=== PATIENT | male | born 1945 | race Caucasian/White ===

== ENCOUNTER 2017-10-28 05:44 | Observation (INO) | payer MEDICARE, OTHER ==
[2017-10-28] VITALS (10 sets, daily range): BP systolic 117–192; BP diastolic 63–111; PULSE 73–89; RESP 15–22; TEMP 98–98.8; O2SAT 82–100
[~2017-10-28] VITALS: Ht 177.8 cm; Wt 120.0 kg
[~2017-10-28 05:44] MED LIST: ALPR.25 PO; ATOR10 PO; CEFU1TAB43 PO; FURO20 PO; KCL10 PO; METF850 PO; WARF5 PO
--- NOTE | 2017-10-28 06:46 | PD ---
HPI Chief Complaint: Chest Pain Time Seen by Provider: 06:18 Travel History International Travel<30 days: No Contact w/Intl Traveler<30days: No Traveled to known affect area: No History of Present Illness HPI 71-year-old male with history of diabetes, hypertension, hyperlipidemia, bilateral pulmonary embolism diagnosed in 2016 on Coumadin, brought in by ambulance from home for evaluation of chest pain. Patient reports that he woke up this morning at around 3:00 AM and shortly afterwards he began to experience chest pain that was substernal, radiates to his bilateral shoulders and neck as well as back. He is unable to describe the pain. He reports that he became diaphoretic. Upon arrival to the emergency department he reports that his pain is improved. He tells me that he felt as though he may pass out during the episode of pain. The patient is also very concerned because for the last 2 months he has been increasingly weak with generalized weakness. He also reports that he has had little to eat or drink over the last couple of days. He believes he may have had the flu last week. Currently no cough or hemoptysis. No paresthesias or motor deficits. PFSH Past Medical History Hx Anticoagulant Therapy: No Cardiovascular Problems: Yes (HTN) Chemotherapy: No Cerebrovascular Accident: No Diabetes: Yes Hypertension: Yes Respiratory: No Past Surgical History Abdominal Surgery: Yes (HERNIA REPAIR) Social History Alcohol Use: No Tobacco Use: No Substance Use: No Allergies-Medications (Allergen,Severity, Reaction): Coded Allergies: No Known Allergies (Unverified , 05/06/16) Reported Meds & Prescriptions Reported Meds & Active Scripts Active Reported Klor-Con M20 (Potassium Chloride Microencaps) 20 Meq Tab 20 Meq PO DAILY Furosemide 20 Mg Tab 20 Mg PO DAILY Folic Acid 0.4 Mg Tab 1 Mg PO DAILY Warfarin 6 Mg Tab 6 Mg PO DAILY Atorvastatin (Atorvastatin Calcium) 10 Mg Tab 10 Mg PO HS Losartan (Losartan Potassium) 25 Mg Tab 25 Mg PO DAILY Glimepiride 4 Mg Tab 4 Mg PO DAILY Take with breakfast or first main meal Metoprolol Tartrate 100 Mg Tab 100 Mg PO BID Review of Systems Except as stated in HPI: all other systems reviewed are Neg Physical Exam Narrative GENERAL: Well-developed, well-nourished, overweight, awake, alert, comfortable, no apparent distress. SKIN: Focused skin assessment warm/dry. Large/brownish color/fungating mass on anterior scalp/forehead. The patient reports that he has had this for quite some time, and was told that it was a basal cell carcinoma, however he is not receiving any treatment for it. HEAD: Atraumatic. Normocephalic. Skin exam as above. EYES: Pupils equal and round. No scleral icterus. No injection or drainage. ENT: Mucous membranes pink and moist. NECK: Trachea midline. No JVD. CARDIOVASCULAR: Regular rate and rhythm. Distal pulses brisk and equal bilaterally. RESPIRATORY: No accessory muscle use. Clear to auscultation. Breath sounds equal bilaterally. GASTROINTESTINAL: Abdomen soft, non-tender, nondistended. MUSCULOSKELETAL: No obvious deformities. No clubbing. No cyanosis. No edema. NEUROLOGICAL: Awake and alert. No obvious cranial nerve deficits. Motor grossly within normal limits. Normal speech. PSYCHIATRIC: Appropriate mood and affect; insight and judgment normal. Data Data Last Documented VS Vital Signs Date Time Temp Pulse Resp B/P (MAP) Pulse Ox O2 Delivery O2 Flow Rate FiO2 10/28/17 05:59 98.4 85 19 154/75 (101) 100 Orders Orders B-Type Natriuretic Peptide (10/28/17 06:48) Ckmb (Isoenzyme) Profile (10/28/17 06:48) Complete Blood Count With Diff (10/28/17 06:48) Comprehensive Metabolic Panel (10/28/17 06:48) Magnesium (Mg) (10/28/17 06:48) Prothrombin Time / Inr (Pt) (10/28/17 06:48) Act Partial Throm Time (Ptt) (10/28/17 06:48) Troponin I (10/28/17 06:48) Lipase (10/28/17 06:48) Chest, Single Ap (10/28/17 06:48) Ecg Monitoring (10/28/17 06:48) Iv Access Insert/Monitor (10/28/17 06:48) Oximetry (10/28/17 06:48) Aspirin Chew (Aspirin Chew) (10/28/17 07:00) Sodium Chloride 0.9% Flush (Ns Flush) (10/28/17 07:00) Labs Laboratory Tests Test 10/28/17 06:[address] [facility] Medical Decision Making Medical Screen Exam Complete: Yes Emergency Medical Condition: Yes Interpretation(s) EKG: Sinus, rate 79, normal axis, normal intervals, no acute ischemic abnormality. Differential Diagnosis ACS, pneumothorax, pericarditis, PE, pneumonia, musculoskeletal pain, melanoma, basal cell carcinoma Narrative Course At approximately 7:00 AM at the end of my shift the patient was signed out to Dr. Garza to follow-up with labs, imaging studies, and disposition. Syd Husain MD Oct 28, 2017 06:46
[2017-10-28] MEDS ORDERED: ASPIRIN 81 MG CHEW TAB PO ONE (07:00)
[2017-10-28] MEDS ORDERED: SODIUM CHLORIDE 0.9% FLUSH 10 ML FLUSH IVF PRN (07:00)
[2017-10-28] MEDS ORDERED: ATOR10TA15 PO (07:01)
[2017-10-28] MEDS ORDERED: LOSA25TA PO (07:01)
[2017-10-28] MEDS ORDERED: KLOR20TA3 PO (07:01)
[2017-10-28] MEDS ORDERED: FOLI400T PO (07:01)
[2017-10-28] MEDS ORDERED: WARF-60 PO (07:01)
[2017-10-28] MEDS ORDERED: METO100T PO (07:01)
[2017-10-28] MEDS ORDERED: GLIM4TAB PO (07:01)
[2017-10-28] MEDS ORDERED: FURO20TA PO (07:01)
[2017-10-28 07:10] LABS: BASOPHIL # 0.1 TH/MM3 (0-0.2); BASOPHIL % 0.9 % (0.0-2.0); EOSINOPHIL # 0.2 TH/MM3 (0-0.4); EOSINOPHIL % 2.9 % (0.0-4.0); HEMATOCRIT 47.4 % (39.0-51.0); HEMOGLOBIN 16.2 GM/DL (13.0-17.0); LYMPH % 25.1 % (9.0-44.0); LYMPHOCYTE # 1.6 TH/MM3 (1.0-4.8); MEAN CELL VOLUME 90.5 FL (80.0-100.0); MEAN CORPUSCULAR HEMOGLOBIN 30.9 PG (27.0-34.0); MEAN CORPUSCULAR HGB CONC 34.2 % (32.0-36.0); MEAN PLATELET VOLUME 9.7 FL (7.0-11.0); MONO % 8.6 % (0.0-8.0); MONOCYTE # 0.5 TH/MM3 (0-0.9); NEUT % 62.5 % (16.0-70.0); PLATELET COUNT 192 TH/MM3 (150-450); RED BLOOD COUNT 5.24 MIL/MM3 (4.50-5.90); RED CELL DISTRIBUTION WIDTH 13.8 % (11.6-17.2); WHITE BLOOD COUNT 6.3 TH/MM3 (4.0-11.0)
[2017-10-28 07:21] LABS: INTERNATIONAL NORMALIZED RATIO 3.1 RATIO; PROTHROMBIN TIME - PATIENT 31.4 SEC (9.8-11.6)
--- NOTE | 2017-10-28 07:41 | RADRPT ---
EXAM DATE/TIME: 10/28/2017 07:21 [facility] COMPARISON: CHEST SINGLE AP, May 10, 2016, 3:39. INDICATIONS : Chest pain. MEDICAL HISTORY : Hypertension. SURGICAL HISTORY : None. ENCOUNTER: Initial ACUITY: 2 days PAIN SCORE: 5/10 LOCATION: Left upper chest FINDINGS: There is a mild slightly atelectasis versus scarring in both lung bases. Otherwise, the lungs are ricci ar and well-aerated. No definite pleural effusions. The heart size is within normal limits and stable . There is mild prominence of the pulmonary vasculature. The bony structures are grossly intact. Ther e is no evidence of pneumothorax. There is evidence of previous surgery to the lower cervical spine. CONCLUSION: 1. Mild bibasilar atelectasis versus scarring. 2. Mild pulmonary venous congestion. 3. Otherwise, no significant changes compared to the prior exam. Jesus Gusman MD on October 28, 2017 at 7:38 Board Certified Radiologist. This report was verified electronically.
[2017-10-28 07:45] LABS: ALBUMIN 3.5 GM/DL (3.4-5.0); ALKALINE PHOSPHATASE 83 U/L (45-117); ALT (GPT) 34 U/L (12-78); AST (GOT) 39 U/L (15-37); BICARBONATE 27.9 MEQ/L (21.0-32.0); BLOOD UREA NITROGEN 7 MG/DL (7-18); CALCIUM 9.2 MG/DL (8.5-10.1); CHLORIDE 104 MEQ/L (98-107); CREATININE 1.23 MG/DL (0.60-1.30); GLOMERULAR FILTRATION RATE 58 ML/MIN (>89); GLUCOSE,RANDOM 181 MG/DL (74-106); SODIUM (NA) 139 MEQ/L (136-145); TOTAL BILIRUBIN ADULT 0.6 MG/DL (0.2-1.0); TOTAL PROTEIN 7.7 GM/DL (6.4-8.2); TROPONIN I LESS THAN 0.02 NG/ML (0.02-0.05)
--- NOTE | 2017-10-28 08:11 | PD ---
Physical Exam Date Seen by Provider: Oct 28, 2017 Time Seen by Provider: 07:00 Narrative Patient initially seen and evaluated by Dr. Husain, please see Dr. Husain's note for further details, signed out to me at 7 AM awaiting initial workup, planning to admit to chest pain center. Initial EKG did not show significant ST elevations or depressions, no dysrhythmias identified. Laboratory Tests Test 10/28/17 06:45 Monocytes (%) (Auto) 8.6 % (0.0-8.0) Prothrombin Time 31.4 SEC (9.8-11.6) Activated Partial Thromboplast Time 42.8 SEC (24.3-30.1) Random Glucose 181 MG/DL (74-106) Aspartate Amino Transf (AST/SGOT) 39 U/L (15-37) Estimat Glomerular Filtration Rate 58 ML/MIN (>89) Troponin I LESS THAN 0.02 NG/ML Last 24 hours Impressions Chest X-Ray 10/28/17 0648 Signed Impressions: Service Date/Time: Saturday, October 28, 2017 07:21 - CONCLUSION: 1. Mild bibasilar atelectasis versus scarring. 2. Mild pulmonary venous congestion. 3. Otherwise , no significant changes compared to the prior exam. Jesus Gusman MD At this point, plan would be to admit the patient to chest pain center as previously discussed. Data Data Last Documented VS Vital Signs Date Time Temp Pulse Resp B/P (MAP) Pulse Ox O2 Delivery O2 Flow Rate FiO2 10/28/17 07:00 77 22 146/77 (100) 97 Room Air 10/28/17 05:59 98.4 Orders Orders B-Type Natriuretic Peptide (10/28/17 06:48) Ckmb (Isoenzyme) Profile (10/28/17 06:48) Complete Blood Count With Diff (10/28/17 06:48) Comprehensive Metabolic Panel (10/28/17 06:48) Magnesium (Mg) (10/28/17 06:48) Prothrombin Time / Inr (Pt) (10/28/17 06:48) Act Partial Throm Time (Ptt) (10/28/17 06:48) Troponin I (10/28/17 06:48) Lipase (10/28/17 06:48) Chest, Single Ap (10/28/17 06:48) Ecg Monitoring (10/28/17 06:48) Iv Access Insert/Monitor (10/28/17 06:48) Oximetry (10/28/17 06:48) Aspirin Chew (Aspirin Chew) (10/28/17 07:00) Sodium Chloride 0.9% Flush (Ns Flush) (10/28/17 07:00) Electrocardiogram (10/28/17 06:05) Admit Order (Ed Use Only) (10/28/17 08:09) Labs Laboratory Tests Test 10/28/17 06:45 White Blood Count 6.3 TH/MM3 Red Blood Count 5.24 MIL/MM3 Hemoglobin 16.2 GM/DL Hematocrit 47.4 % Mean Corpuscular Volume 90.5 FL Mean Corpuscular Hemoglobin 30.9 PG Mean Corpuscular Hemoglobin Concent 34.2 % Red Cell Distribution Width 13.8 % Platelet Count 192 TH/MM3 Mean Platelet Volume 9.7 FL Neutrophils (%) (Auto) 62.5 % Lymphocytes (%) (Auto) 25.1 % Monocytes (%) (Auto) 8.6 % Eosinophils (%) (Auto) 2.9 % Basophils (%) (Auto) 0.9 % Neutrophils # (Auto) 4.0 TH/MM3 Lymphocytes # (Auto) 1.6 TH/MM3 Monocytes # (Auto) 0.5 TH/MM3 Eosinophils # (Auto) 0.2 TH/MM3 Basophils # (Auto) 0.1 TH/MM3 CBC Comment DIFF FINAL Differential Comment Prothrombin Time 31.4 SEC Prothromb Time International Ratio 3.1 RATIO Activated Partial Thromboplast Time 42.8 SEC Blood Urea Nitrogen 7 MG/DL Creatinine 1.23 MG/DL Random Glucose 181 MG/DL Total Protein 7.7 GM/DL Albumin 3.5 GM/DL Calcium Level 9.2 MG/DL Magnesium Level 2.0 MG/DL Alkaline Phosphatase 83 U/L Aspartate Amino Transf (AST/SGOT) 39 U/L Alanine Aminotransferase (ALT/SGPT) 34 U/L Total Bilirubin 0.6 MG/DL Sodium Level 139 MEQ/L Potassium Level 4.4 MEQ/L Chloride Level 104 MEQ/L Carbon Dioxide Level 27.9 MEQ/L Anion Gap 7 MEQ/L Estimat Glomerular Filtration Rate 58 ML/MIN Total Creatine Kinase 84 U/L Troponin I LESS THAN 0.02 NG/ML B-Type Natriuretic Peptide 9 PG/ML Lipase 276 U/L [facility] Medical Record Reviewed: Yes Supervised Visit with JAVON: No Diagnosis Primary Impression: Chest pain Admitting Information Admitting Physician Requests: Reilly Bragg MD Oct 28, 2017 08:11
--- NOTE | 2017-10-28 08:46 | EKG ---
Date Performed: 10/28/2017 Time Performed: 06:05:54 PTAGE: 71 years EKG: Sinus rhythm NORMAL ECG PREVIOUS TRACING : 05/07/2016 01.09 No significant change from previous tracing noted. DOCTOR: Magan Morgan Interpretating Date/Time 10/28/2017 08:44:03
[2017-10-28] MEDS ORDERED: ACETAMINOPHEN 500 MG CPLT PO PRN (11:00)
[2017-10-28] MEDS ORDERED: ONDANSETRON HCL 4 MG/2 ML VIAL IV PUSH PRN (11:00)
[2017-10-28] MEDS ORDERED: ACETAMINOPHEN/HYDROcodone 325 MG/7.5 MG TAB PO PRN (11:00)
[2017-10-28] MEDS ORDERED: DEXTROSE 50% IN WATER 50 ML VIAL(D50) IV PUSH PRN (11:15)
[2017-10-28] MEDS ORDERED: GLUCAGON 1 MG/ML VIAL OTHER PRN (11:15)
[2017-10-28] MEDS ORDERED: WARF-23 PO (11:22)
--- NOTE | 2017-10-28 11:48 | HHI.HP ---
HPI Primary Care Physician Paulie Zaidi MD Chief Complaint Chest pain History of Present Illness This is a 71-year-old male with history of bilateral pulmonary embolus and a non -STEMI April 2016, hypertension, hyperlipidemia, diabetes, and basal cell carcinoma on the scalp that presents to ED to be evaluated for chest discomfort. Patient states that he has been having intermittent discomfort. Points across lower part of his chest and states that radiates upward into his neck. The discomfort generally was very random over the last month. Found nothing necessary to bring on the discomfort. Nothing to worsen or improve it. He also states that over the last month he has been very fatigued and short of breath. Concerned, states that it was similar to when he had pulmonary emboli. Voices compliance with his medication. In fact states that his warfarin dose was recently changed. His INR went up to 5 and his Coumadin dose was decreased from 6 mg to 5 mg daily after holding it for 2 days. His INR in the ED today is 3.1. He had stopped taking his Lasix and potassium and when he saw his PCP Dr. Zaidi, Dr. Zaidi assumed he had stopped taking her mind and he needed to take the medicine as his feet were very swollen. The patient states that his feet have improved and takes office used to show me. As he does this you can see that all his toenails are extremely long and not been trimmed for quite a long time. States he does not have a medical record technician to follow-up with. He then shows me the lesion on his scalp saying he has a basal cell carcinoma that is continuing to worsen and he has not followed up to have that removed. But now the patient is very concerned over his health and states that he will do whatever is needed. He is concerned, states his son just of a myocardial infarction 3 weeks ago. He has been taking the Lasix and potassium as instructed her last 2 weeks however he has not noticed a change in his weight but his doctor has noticed that his feet are not swollen. His concern was the discomfort this morning that just would not go away and is still present at this time. Review of Systems General: Patient denies fevers, chills, and recent travel. HEENT: Patient denies headache, sore throat, difficulty swallowing. Cardiovascular: Has the chest discomfort as mentioned above. Denies sensation of heart beating rapidly or irregularly. No syncope. Denies diaphoresis. Respiratory: He has been short of breath. He has been short of breath at rest and with exertion. Denies shortness of breath or inspirational chest discomfort. Denies coughing wheezing or hemoptysis. GI: Patient denies nausea, vomiting, diarrhea, abdominal pain, bloody stools. Musculoskeletal: Had edema in his feet but that has improved after restarting Lasix 2 weeks ago. Denies calf pain or edema. Neurovascular: Patient denies numbness, tingling, weakness in extremities. Denies headache. Endocrine: Denies polyuria and polydipsia. Hematologic: Denies easy bruising. Skin: Complains of a basal cell carcinoma on his scalp. Denies rash or itching. Past Family Social History Allergies: Coded Allergies: No Known Allergies (Unverified , 05/06/16) Past Medical History Hypertension, hyperlipidemia, diabetes, bilateral pulmonary embolus April 2016 at same time had elevated troponins but was thought to be related to the pulmonary emboli and no further cardiac workup was obtained at that time. Denies any knowledge of prior coronary disease. Past Surgical History Hernia repair. Reported Medications Reported Meds & Active Scripts Active Warfarin 5 Mg Tab 5 Mg PO DAILY Reported Klor-Con M20 (Potassium Chloride Microencaps) 20 Meq Tab 20 Meq PO DAILY Furosemide 20 Mg Tab 20 Mg PO DAILY Folic Acid 0.4 Mg Tab 1 Mg PO DAILY Atorvastatin (Atorvastatin Calcium) 10 Mg Tab 10 Mg PO HS Losartan (Losartan Potassium) 25 Mg Tab 25 Mg PO DAILY Glimepiride 4 Mg Tab 4 Mg PO DAILY Take with breakfast or first main meal Metoprolol Tartrate 100 Mg Tab 100 Mg PO BID Active Ordered Medications Current Medications Medications (Trade) Dose Ordered Sig/Avi Route Start Time Stop Time Status Last Admin (NS Flush) 2 ml UNSCH PRN IVF 10/28/17 07:00 10/28/17 06:57 (Tylenol) 500 mg Q4H PRN PO 10/28/17 11:00 UNV ([place] 7.5-325 Mg) 1 tab Q4H PRN PO 10/28/17 11:00 UNV (Zofran Inj) 4 mg Q6H PRN IV PUSH 10/28/17 11:00 UNV (NovoLOG SUPPLEMENTAL SCALE) 1 ACHS SLIDING SCALE SQ 10/28/17 12:00 UNV (D50w (Vial) Inj) 50 ml UNSCH PRN IV PUSH 10/28/17 11:15 UNV (Glucagon Inj) 1 mg UNSCH PRN OTHER 10/28/17 11:15 UNV (Folate) 1 mg DAILY PO 10/28/17 11:15 UNV (Lasix) 20 mg DAILY PO 10/28/17 11:15 UNV (Cozaar) 25 mg DAILY PO 10/28/17 11:15 UNV (Lopressor) 100 mg BID PO 10/28/17 11:15 UNV (KCl) 20 meq DAILY PO 10/28/17 11:15 UNV Family History His son 3 weeks ago of a myocardial infarction at age 43. Social History Non-smoker. Denies alcohol or illicit drug use. Physical Exam Vital Signs Vital Signs Date Time Temp Pulse Resp B/P (MAP) Pulse Ox O2 Delivery O2 Flow Rate FiO2 10/28/17 10:20 10/28/17 10:00 76 16 126/65 (85) 99 Room Air 10/28/17 09:00 73 15 133/70 (91) 96 Room Air 10/28/17 08:00 74 16 126/63 (84) 99 Room Air 10/28/17 07:00 77 22 146/77 (100) 97 Room Air 10/28/17 05:59 98.4 85 19 154/75 (101) 100 Physical Exam GENERAL: This is a well-nourished, well-developed patient, in no apparent distress. Patient speaks in clear complete sentences. Patient is pleasant. HEENT: Head is atraumatic and normocephalic. Neck is supple without lymphadenopathy and trachea is midline. No JVD or carotid bruits. CARDIOVASCULAR: Regular rate and rhythm without murmurs, gallops, or rubs. RESPIRATORY: Clear to auscultation. Breath sounds equal bilaterally. No wheezes , rales, or rhonchi. Chest wall is nontender. No use of accessory muscles. GASTROINTESTINAL: Abdomen is nontender, nondistended. Abdomen soft. No obvious pulsatile mass or bruit. No CVA tenderness. Strong femoral pulses bilaterally. Normal bowel sounds in all quadrants. MUSCULOSKELETAL: Patient is moving upper and lower extremities freely. No calf tenderness or edema, no Homans sign. Strong pulses in upper and lower extremities. NEUROLOGICAL: Patient is alert and oriented. Cranial nerves 2-12 are grossly intact. No focal deficits and speech is clear. SKIN: There is a lesion that is scabbed over on his scalp that he states has been there for more than a year that he can remember. It is raised. States it is a basal cell carcinoma. Has not had follow-up to have it excised. No rash and turgor is normal. Laboratory Laboratory Tests Test 10/28/17 06:45 White Blood Count 6.3 Red Blood Count 5.24 Hemoglobin 16.2 Hematocrit 47.4 Mean Corpuscular Volume 90.5 Mean Corpuscular Hemoglobin 30.9 Mean Corpuscular Hemoglobin Concent 34.2 Red Cell Distribution Width 13.8 Platelet Count 192 Mean Platelet Volume 9.7 Neutrophils (%) (Auto) 62.5 Lymphocytes (%) (Auto) 25.1 Monocytes (%) (Auto) 8.6 Eosinophils (%) (Auto) 2.9 Basophils (%) (Auto) 0.9 Neutrophils # (Auto) 4.0 Lymphocytes # (Auto) 1.6 Monocytes # (Auto) 0.5 Eosinophils # (Auto) 0.2 Basophils # (Auto) 0.1 CBC Comment DIFF FINAL Differential Comment Prothrombin Time 31.4 Prothromb Time International Ratio 3.1 Activated Partial Thromboplast Time 42.8 Blood Urea Nitrogen 7 Creatinine 1.23 Random Glucose 181 Total Protein 7.7 Albumin 3.5 Calcium Level 9.2 Magnesium Level 2.0 Alkaline Phosphatase 83 Aspartate Amino Transf (AST/SGOT) 39 Alanine Aminotransferase (ALT/SGPT) 34 Total Bilirubin 0.6 Sodium Level 139 Potassium Level 4.4 Chloride Level 104 Carbon Dioxide Level 27.9 Anion Gap 7 Estimat Glomerular Filtration Rate 58 Total Creatine Kinase 84 Troponin I LESS THAN 0.02 B-Type Natriuretic Peptide 9 Lipase 276 Result Diagram: 10/28/1745 10/28/1745 Imaging Last 48 hours Impressions Chest X-Ray 10/28/17 0648 Signed Impressions: Service Date/Time: Saturday, October 28, 2017 07:21 - CONCLUSION: 1. Mild bibasilar atelectasis versus scarring. 2. Mild pulmonary venous congestion. 3. Otherwise , no significant changes compared to the prior exam. Jesus Gusman MD Course Initial EKG is sinus rhythm without significant ST segment depressions or elevations. Caprini VTE Risk Assessment Caprini VTE Risk Assessment: Mod/High Risk (score >= 2) Caprini Risk Assessment Model Point Value = 1 Point Value = 2 Point Value = 3 Point Value = 5 Age 41-60 Minor surgery BMI > 25 kg/m2 Swollen legs Varicose veins or History of unexplained or recurrent spontaneous Oral contraceptives or hormone replacement Sepsis (< 1 month) Serious lung disease, including pneumonia (< 1 month) Abnormal pulmonary function Acute myocardial infarction Congestive heart failure (< 1 month) History of inflammatory bowel disease Medical patient at bed rest Age 61-74 Arthroscopic surgery Major open surgery (> 45 min) Laparoscopic surgery (> 45 min) Malignancy Confined to bed (> 72 hours) Immobilizing plaster cast Central venous access Age >= 75 History of VTE Family history of VTE Factor V Leiden Prothrombin [id number] Lupus anticoagulant Anticardiolipin antibodies Elevated serum homocysteine Heparin-induced thrombocytopenia Other congenital or acquired thrombophilia Stroke (< 1 month) Elective arthroplasty Hip, pelvis, or leg fracture Acute spinal cord injury (< 1 month) Prophylaxis Regimen Total Risk Factor Score Risk Level Prophylaxis Regimen 0-1 Low Early ambulation 2 Moderate Order ONE of the following: *Sequential Compression Device (SCD) *Heparin 5000 units SQ BID 3-4 Higher Order ONE of the following medications: *Heparin 5000 units SQ TID *Enoxaparin/Lovenox 40 mg SQ daily (WT < 150 kg, CrCl > 30 mL/min) *Enoxaparin/Lovenox 30 mg SQ daily (WT < 150 kg, CrCl > 10-29 mL/min) *Enoxaparin/Lovenox 30 mg SQ BID (WT < 150 kg, CrCl > 30 mL/min) AND/OR *Sequential Compression Device (SCD) 5 or more Highest Order ONE of the following medications: *Heparin 5000 units SQ TID (Preferred with Epidurals) *Enoxaparin/Lovenox 40 mg SQ daily (WT < 150 kg, CrCl > 30 mL/min) *Enoxaparin/Lovenox 30 mg SQ daily (WT < 150 kg, CrCl > 10-29 mL/min) *Enoxaparin/Lovenox 30 mg SQ BID (WT < 150 kg, CrCl > 30 mL/min) AND *Sequential Compression Device (SCD) Assessment and Plan Assessment and Plan * Chest pain: Patient will continue to have serial cardiac enzymes and EKGs for ruling out purposes. He will be seen by Dr. Peterson of cardiology in the chest pain center. He will have a CT pulmonary antrum to rule out pulmonary embolus and if that is unremarkable for PE with an proceed with a Lexiscan. Patient to be discharged home if his Lexiscan is nonischemic. * Questionable if he has some mild heart failure: BNP is normal however chest x- ray showed some mild pulmonary venous congestion. Admits to being noncompliant with his diuretic but restarted it 2 weeks ago at the instructions of his primary care physician and is noticed that the swelling in his feet have gone down. We will resume his medication. * Hypertension: Resume medication. * Hyperlipidemia: Resume medication. * Obesity: Patient counseled importance of diet, excess, weight loss. * Diabetes: Patient will be on sliding scale insulin coverage while in chest pain center. Resume medication at discharge. All diabetic diet. Patient is stable at this time. He is agreeable to this plan. At discharge patient should be following up with his primary care physician and return to ED for interval issues. Charlie Ponce Oct 28, 2017 11:48
[2017-10-28] MEDS ORDERED: IOHEXOL 350 MG/ML 10 ML VIAL (for RAD DIAG) IVCONTRAST ONE (11:59)
[2017-10-28] MEDS ORDERED: LOSARTAN 25 MG TAB PO SCH (12:00)
[2017-10-28] MEDS ORDERED: FOLIC ACID 1 MG TAB PO SCH (12:00)
[2017-10-28] MEDS ORDERED: INSULIN ASPART SUPPLEMENTAL SCALE SQ SCH (12:00)
[2017-10-28] MEDS ORDERED: FUROSEMIDE 20 MG TAB PO SCH (12:00)
[2017-10-28] MEDS ORDERED: POTASSIUM CHLORIDE 20 MEQ CONTROLLED RELEASE TAB PO SCH (12:00)
--- NOTE | 2017-10-28 12:03 | RADRPT ---
EXAM DATE/TIME: 10/28/2017 11:43 [facility] COMPARISON: CT PULMONARY ANGIOGRAM, May 06, 2016, 20:54. INDICATIONS : Back pain for a month, radiates to right side, diaphoretic IV CONTRAST: 75 cc Omnipaque 350 (iohexol) IV RADIATION DOSE: 10.63 CTDIvol (mGy) MEDICAL HISTORY : Cardiovascular disease. Hypertension. Diabetes, PE SURGICAL HISTORY : Hernia ENCOUNTER: Initial ACUITY: 1 month PAIN SCALE: 6/10 LOCATION: Right chest TECHNIQUE: Volumetric scanning of the chest was performed using a pulmonary embolism protocol MIP images were re constructed. Using automated exposure control and adjustment of the mA and/or kV according to patien t size, radiation dose was kept as low as reasonably achievable to obtain optimal diagnostic quality images. DICOM format image data is available electronically for review and comparison. Follow-up recommendations for detected pulmonary nodules are based at a minimum on nodule size and pa tient risk factors according to Fleischner Society Guidelines. FINDINGS: PULMONARY ARTERIES: No filling defects are seen in the pulmonary arteries through the segmental level. LUNGS: There is no consolidation or pneumothorax . No concerning pulmonary nodule is visualized. PLEURAE: There is no pleural thickening or pleural effusion. MEDIASTINUM: There is good visualization of the great vessels of the middle mediastinum. No evidence of mediastin al or hilar adenopathy/mass. CONCLUSION: 1. The study is negative for pulmonary embolism. Lucho Beltran MD on October 28, 2017 at 11:58 Board Certified Radiologist. This report was verified electronically.
[2017-10-28] MEDS ORDERED: METOPROLOL TARTRATE 100 MG TAB PO SCH (12:30)
[2017-10-28 13:36] LABS: TROPONIN I LESS THAN 0.02 NG/ML (0.02-0.05)
--- NOTE | 2017-10-28 14:12 | PD.CARD.PN ---
Subjective Subjective Remarks Rather complex patient with a history of pulmonary emboli, diabetes, hypertension poorly controlled, probable CHF, large fungating basal cell carcinoma of the head, and morbid obesity presents now with complaints of vague atypical chest pain. Patient was discussed with the advanced practitioner medical records were reviewed and the patient was seen and examined by me personally. Assessment and plan are as discussed and recorded. Objective Medications Current Medications Medications (Trade) Dose Ordered Sig/Avi Route Start Time Stop Time Status Last Admin (NS Flush) 2 ml UNSCH PRN IVF 10/28/17 07:00 10/28/17 06:57 (Tylenol) 500 mg Q4H PRN PO 10/28/17 11:00 ([place] 7.5-325 Mg) 1 tab Q4H PRN PO 10/28/17 11:00 (Zofran Inj) 4 mg Q6H PRN IV PUSH 10/28/17 11:00 (NovoLOG SUPPLEMENTAL SCALE) 1 ACHS SLIDING SCALE SQ 10/28/17 12:00 (D50w (Vial) Inj) 50 ml UNSCH PRN IV PUSH 10/28/17 11:15 (Glucagon Inj) 1 mg UNSCH PRN OTHER 10/28/17 11:15 (Folate) 1 mg DAILY PO 10/28/17 12:00 10/28/17 12:09 (Lasix) 20 mg DAILY PO 10/28/17 12:00 10/28/17 12:09 (Cozaar) 25 mg DAILY PO 10/28/17 12:00 10/28/17 12:09 (Lopressor) 100 mg BID PO 10/28/17 12:30 10/28/17 12:12 (KCl) 20 meq DAILY PO 10/28/17 12:00 10/28/17 12:11 Vital Signs / I&O Vital Signs Date Time Temp Pulse Resp B/P (MAP) Pulse Ox O2 Delivery O2 Flow Rate FiO2 10/28/17 13:31 98.8 82 16 148/77 (100) 82 10/28/17 12:08 98 21 10/28/17 11:31 98.0 89 16 192/111 (138) 96 10/28/17 10:20 10/28/17 10:00 76 16 126/65 (85) 99 Room Air 10/28/17 09:00 73 15 133/70 (91) 96 Room Air 10/28/17 08:00 74 16 126/63 (84) 99 Room Air 10/28/17 07:00 77 22 146/77 (100) 97 Room Air 10/28/17 05:59 98.4 85 19 154/75 (101) 100 Physical Exam Morbidly obese gentleman sitting at the bedside Skin reveals a large fungating basal cell carcinoma on the left forehead JVD is noted but difficult to evaluate due to his novak Chest reveals good breath sounds with no rales wheezes or rhonchi Cardiovascular regular sinus rhythm with no gallop rub or murmur Abdomen is obese distended but nontender Extremities reveal 1+ pitting edema to mid tibia Laboratory Laboratory Tests Test 10/28/17 06:45 10/28/17 11:16 10/28/17 13:00 White Blood Count 6.3 TH/MM3 Red Blood Count 5.24 MIL/MM3 Hemoglobin 16.2 GM/DL Hematocrit 47.4 % Mean Corpuscular Volume 90.5 FL Mean Corpuscular Hemoglobin 30.9 PG Mean Corpuscular Hemoglobin Concent 34.2 % Red Cell Distribution Width 13.8 % Platelet Count 192 TH/MM3 Mean Platelet Volume 9.7 FL Neutrophils (%) (Auto) 62.5 % Lymphocytes (%) (Auto) 25.1 % Monocytes (%) (Auto) 8.6 % Eosinophils (%) (Auto) 2.9 % Basophils (%) (Auto) 0.9 % Neutrophils # (Auto) 4.0 TH/MM3 Lymphocytes # (Auto) 1.6 TH/MM3 Monocytes # (Auto) 0.5 TH/MM3 Eosinophils # (Auto) 0.2 TH/MM3 Basophils # (Auto) 0.1 TH/MM3 CBC Comment DIFF FINAL Differential Comment Prothrombin Time 31.4 SEC Prothromb Time International Ratio 3.1 RATIO Activated Partial Thromboplast Time 42.8 SEC Blood Urea Nitrogen 7 MG/DL Creatinine 1.23 MG/DL Random Glucose 181 MG/DL Total Protein 7.7 GM/DL Albumin 3.5 GM/DL Calcium Level 9.2 MG/DL Magnesium Level 2.0 MG/DL Alkaline Phosphatase 83 U/L Aspartate Amino Transf (AST/SGOT) 39 U/L Alanine Aminotransferase (ALT/SGPT) 34 U/L Total Bilirubin 0.6 MG/DL Sodium Level 139 MEQ/L Potassium Level 4.4 MEQ/L Chloride Level 104 MEQ/L Carbon Dioxide Level 27.9 MEQ/L Anion Gap 7 MEQ/L Estimat Glomerular Filtration Rate 58 ML/MIN Total Creatine Kinase 84 U/L 81 U/L Troponin I LESS THAN 0.02 NG/ML LESS THAN 0.02 NG/ML B-Type Natriuretic Peptide 9 PG/ML Lipase 276 U/L Imaging Last 24 hours Impressions Chest X-Ray 10/28/17 0648 Signed Impressions: Service Date/Time: Saturday, October 28, 2017 07:21 - CONCLUSION: 1. Mild bibasilar atelectasis versus scarring. 2. Mild pulmonary venous congestion. 3. Otherwise , no significant changes compared to the prior exam. Jesus Gusman MD CT Angiography 10/28/17 0000 Signed Impressions: Service Date/Time: Saturday, October 28, 2017 11:43 - CONCLUSION: 1. The study is negative for pulmonary embolism. Lucho Beltran MD Assessment and Plan Assessment and Plan Patient's blood pressure and diabetes need to be stabilized We will rule out using standard protocol and if negative obtain a Lexiscan Patient needs reeducation on an outpatient basis regarding diet and activities Discussed Condition With Discussed with patient Mariano Peterson MD Oct 28, 2017 14:12
--- NOTE | 2017-10-28 15:05 | EKG ---
Date Performed: 10/28/2017 Time Performed: 11:26:10 PTAGE: 71 years EKG: Sinus rhythm NORMAL ECG No change PREVIOUS TRACING : 10/28/2017 06.05 DOCTOR: Mariano Peterson Interpretating Date/Time 10/28/2017 15:04:24
[2017-10-28] MEDS ORDERED: REGADENOSON INJ 0.4 MG/5 ML SYR ONE (15:54)
--- NOTE | 2017-10-28 16:45 | HHI.DCPOC ---
Discharge Care Plan Diagnosis: (1) Chest pain (2) Hypertension (3) Hyperlipidemia (4) DM (diabetes mellitus) (5) Scalp lesion Goals to Promote Your Health YOU NEED TO HAVE THE SKIN LESION ON YOUR SCALP EXCISED AND BIOPSIED KYLE, DISCUSS WITH YOUR PHYSICIAN WHEN FOLLOWING UP IN 3-5 DAYS. * To prevent worsening of your condition and complications * To maintain your health at the optimal level Directions to Meet Your Goals Take your medications as prescribed Follow your dietary instruction Follow activity as directed Keep your appointments as scheduled Take your immunizations and boosters as scheduled If your symptoms worsen call your PCP, if no PCP go to Urgent Care Center or Emergency Room Smoking is Dangerous to Your Health. Avoid second hand smoke Call the 24-hour hour crisis hotline for domestic abuse at [facility] Oct 28, 2017 16:45
--- NOTE | 2017-10-28 17:30 | RADRPT ---
EXAM DATE/TIME: 10/28/2017 15:20 [facility] COMPARISON: CHEST SINGLE AP, October 28, 2017, 7:21. CT PULMONARY ANGIOGRAM, October 28, 2017, 11:43. INDICATIONS : Mid chest pain for one day. Angina. DOSE: 35.0 mCi Tc99m Myoview at stress. 11.0 mCi Tc99m Myoview at rest. 0.4 mg Lexiscan STRESS SYMPTOMS: Flush. EJECTION FRACTION: 68/% MEDICAL HISTORY : Diabetes mellitus type 2. Hypertension. Carcinoma, basal cell. SURGICAL HISTORY : Umbilical hernia repair. ENCOUNTER: Initial ACUITY: 1 day PAIN SCALE: 5/10 LOCATION: Midsternal chest TECHNIQUE: The patient underwent pharmacologic stress with infusion of prescribed dose. Continuous ECG tracing was monitored during stress. Gated SPECT imaging was performed after stress and conventional SPECT i maging was performed at rest. The examination was performed on a SPECT/CT scanner, both attenuation and non-corrected datasets were reviewed. FINDINGS: DISTRIBUTION: The maximum perfused segment at stress is in the septal wall. PERFUSION STUDY: The pattern of perfusion at stress is within normal limits, with regional variation of perfusion with in 35%. The heart is horizontal in axis along the left hemidiaphragm and there is associated diaphra gmatic attenuation in the inferior wall. The summed stress score is one. No evidence of redistribut ion. GATED STUDY: There is intact wall motion and thickening without hypokinetic or dyskinetic segments. CONCLUSION: 1. No evidence of stress-induced ischemia. 2. Normal wall motion with 60% ejection fraction. RISK CATEGORY: Low (<1% Annual Mortality Rate) Lucho Beltran MD on October 28, 2017 at 17:24 Board Certified Radiologist. This report was verified electronically.
--- NOTE | 2017-10-29 12:34 | TR ---
Date Performed: 10/28/2017 Time Performed: 15:51:10 DOCTOR: Frank Atkins DRUG LIST: CLINICAL HISTORY: ANGINA REASON FOR TEST: Angina REASON FOR ENDING: OBSERVATION: CONCLUSION: Lexiscan stress test was performed under standard four minute protocol. [place] e was injected one minute prior to ending the test. No electrocardiographic abormalities were present to suggest ischemia. Nuclear imaging and interpretation are pending. COMMENTS:
== END 2017-10-28 18:59 | disposition home or self-care (01) ==
LOC: NEPC 05:44 → NEDA 08:09 → NEPGCP 10:41
PROVIDERS: ADMIT Internal Medicine Interventional Cardiology; ATTEND Internal Medicine Interventional Cardiology
DX: R07.89 Other chest pain (principal); R06.02 Shortness of breath; R53.83 Other fatigue; R61 Generalized hyperhidrosis; R53.1 Weakness; I25.2 Old myocardial infarction; I11.0 Hypertensive heart disease with heart failure; I50.9 Heart failure, unspecified; E78.5 Hyperlipidemia, unspecified; E11.9 Type 2 diabetes mellitus without complications; I87.8 Other specified disorders of veins; E66.9 Obesity, unspecified; Z91.14 Patient's other noncompliance with medication regimen; Z85.828 Personal history of other malignant neoplasm of skin; Z86.711 Personal history of pulmonary embolism; Z79.899 Other long term (current) drug therapy; Z79.01 Long term (current) use of anticoagulants
CPT/HCPCS: 71045; 71275; 78452; 80053; 82550; 82948; 83690; 83735; 83880; 84484; 85025; 85610; 85730; 93005; 93017; 99285; A9502; G0378; J2785; Q9967